=== PATIENT | female | born 1935 | race Caucasian/White ===

== ENCOUNTER → 2016-11-17 | Outpatient (CLI) | payer MEDICARE ==
[~2016-11-17] MED LIST: ALPR.5 PO; BACT400T PO; DIOV160T60 PO; LEVO75TA3 PO; LEVO75TA42 PO; LOSA50TA PO; MEDR4PAK3 PO; SIMV20 PO; TOPR25TA PO; TOPR25TA2 PO; XANA0.5T PO; ZOCO20TA PO
[2016-11-17 09:39] LABS: AUTOMATED NEUTROPHIL # 3.6 TH/MM3 (1.8-7.7); BASOPHIL # 0.1 TH/MM3 (0-0.2); BASOPHIL % 1.2 % (0.0-2.0); EOSINOPHIL # 0.1 TH/MM3 (0-0.4); EOSINOPHIL % 1.6 % (0.0-4.0); HEMATOCRIT 36.6 % (35.0-46.0); HEMO FLAGS DIFF FINAL; LYMPH % 20.7 % (9.0-44.0); LYMPHOCYTE # 1.2 TH/MM3 (1.0-4.8); MEAN CORPUSCULAR HEMOGLOBIN 32.9 PG (27.0-34.0); MEAN CORPUSCULAR HGB CONC 35.7 % (32.0-36.0); MONO % 16.4 % (0.0-8.0); NEUT % 60.1 % (16.0-70.0); PLATELET COUNT 252 TH/MM3 (150-450); RED BLOOD COUNT 3.98 MIL/MM3 (4.00-5.30); WHITE BLOOD COUNT 5.9 TH/MM3 (4.0-11.0)
[2016-11-17 10:12] LABS: ALKALINE PHOSPHATASE 78 U/L (45-117); ALT (GPT) 19 U/L (10-53); ANION GAP 6 MEQ/L (5-15); AST (GOT) 15 U/L (15-37); BICARBONATE 28.6 MEQ/L (21.0-32.0); BLOOD UREA NITROGEN 18 MG/DL (7-18); CHLORIDE 93 MEQ/L (98-107); GLOMERULAR FILTRATION RATE 59 ML/MIN (>89); GLUCOSE,FASTING 78 MG/DL (74-99); HDL CHOLESTEROL 99.1 MG/DL (40.0-60.0); LDL CHOLESTEROL 72 MG/DL (0-99); POTASSIUM 4.3 MEQ/L (3.5-5.1); SODIUM (NA) 128 MEQ/L (136-145); TOTAL BILIRUBIN ADULT 0.5 MG/DL (0.2-1.0)
== END ==
LOC: PLAB 06:43
PROVIDERS: ATTEND Family Medicine
DX: E03.8 Other specified hypothyroidism (principal); R00.2 Palpitations; E55.9 Vitamin D deficiency, unspecified; E78.2 Mixed hyperlipidemia; R41.3 Other amnesia
CPT/HCPCS: 36415; 80053; 80061; 82306; 84443; 85025

== ENCOUNTER → 2016-11-21 | Outpatient (CLI) | payer MEDICARE ==
--- NOTE | 2016-11-23 23:15 | HM ---
Date Performed: 11/21/2016 Time Performed: 13:54:00 HOOKUP DATE: 11/21/16 01:54:00 PM Mon ANALYSIS START TIME: 11/21/2016 1:59:00 PM ANALYSIS END TIME: 11/22/2016 1:57:45 PM PATIENT AGE: 81 PATIENT HEIGHT PATIENT WEIGHT DRUG LIST PATIENT DIAGNOSIS: PALPITATIONS TEST NARRATIVE: The patient's average heart rate was 74 BPM. No episodes of tachycardia wer e noted. Heart rates less than 50 BPM were noted 2% of the time. No pauses exceeding 2.0 seconds were noted. 2 ventricular ectopics, which represented < 1% of the total beat count, were noted. The highest ventricular ectopic frequency occurred from 03:00 PM to 04:00 PM Mon. During this time 1 VE(s) occurred. Ventricular ectopics were observed as 2 isolated beat(s) only. No couplets or run s were noted. 85 supraventricular ectopics, which represented < 1% of the total beat count, were noted. The highest supraventricular ectopic frequency occurred from 08:00 PM to 09:00 PM Mon. Gisselle plummer this time 12 SVE(s) occurred. Multiple episodes of ST depression (defined as -1.0 mm or more) were noted in channel 1. The maximum depression of -1.9 mm occurred at 03:40:50 PM Mon. No episodes of ST depression (defined as -1.0 mm or more) were noted in channel 2. No episodes of ST depression (defined as -1.0 mm or more) were noted in channel 3. TEST INTERPRETATION: Sinus rhythm No ventricular tachycardia No supraventricular tachycardia No significant p[ause observed There is n o entry in the diary Signed by : Franny Lewis
== END ==
LOC: HCAV 12:29
PROVIDERS: ATTEND Family Medicine
DX: R00.2 Palpitations (principal)
CPT/HCPCS: 93225; 93226

== ENCOUNTER → 2016-11-22 | Outpatient (CLI) | payer MEDICARE ==
[2016-11-22 14:07] LABS: AUTOMATED NEUTROPHIL # 4.5 TH/MM3 (1.8-7.7); BASOPHIL # 0.1 TH/MM3 (0-0.2); BASOPHIL % 0.8 % (0.0-2.0); EOSINOPHIL % 0.6 % (0.0-4.0); HEMATOCRIT 35.1 % (35.0-46.0); HEMO FLAGS DIFF FINAL; LYMPHOCYTE # 0.9 TH/MM3 (1.0-4.8); MEAN CELL VOLUME 92.6 FL (80.0-100.0); MEAN CORPUSCULAR HEMOGLOBIN 33.1 PG (27.0-34.0); MEAN CORPUSCULAR HGB CONC 35.8 % (32.0-36.0); NEUT % 66.6 % (16.0-70.0); PLATELET COUNT 266 TH/MM3 (150-450); RED BLOOD COUNT 3.79 MIL/MM3 (4.00-5.30); RED CELL DISTRIBUTION WIDTH 13.2 % (11.6-17.2); WHITE BLOOD COUNT 6.7 TH/MM3 (4.0-11.0)
[2016-11-22 14:36] LABS: POTASSIUM 4.3 MEQ/L (3.5-5.1)
== END ==
LOC: PLAB 09:05
PROVIDERS: ATTEND Family Medicine
DX: E87.1 Hypo-osmolality and hyponatremia (principal); D72.821 Monocytosis (symptomatic); E03.8 Other specified hypothyroidism
CPT/HCPCS: 36415; 80048; 84443; 85025

== ENCOUNTER 2016-11-24 19:15 | Emergency (ER) | payer MEDICARE ==
[~2016-11-24] VITALS: Ht 149.9 cm; Wt 54.4 kg
[~2016-11-24 19:15] MED LIST changes: -ALPR.5 PO; -BACT400T PO; -LEVO75TA3 PO; -LOSA50TA PO; -TOPR25TA PO; -ZOCO20TA PO
[2016-11-24 19:32] VITALS: BP 136/68; PULSE 71; RESP 20; TEMP 98; O2SAT 98
[2016-11-24] MEDS ORDERED: SODIUM CHLOR 0.9% 1000 ML INJ 1,000 ML IV SCH (19:45)
--- NOTE | 2016-11-24 19:49 | PD ---
HPI Chief Complaint: Abnormal Results Time Seen by Provider: 19:42 Travel History International Travel<30 days: No Contact w/Intl Traveler<30days: No Traveled to known affect area: No History of Present Illness HPI 81-year-old female presents to the emergency department for complaint of generalized weakness and feeling antsy. Patient states she was notified by her primary care provider today that her serum sodium is low and if she should feel poorly she should come to the hospital for IV fluids with normal saline. Patient states that she hasn't felt well for a while so her doctor has been running some tests on her. Patient initially perhaps her thyroid was having issues that she was told by her primary care provider Dr. Johns that her thyroid function is normal. Patient was also told all her other electrolytes were normal. Patient does have history of hypertension dyslipidemia and hypothyroidism. Patient denies any history of coronary vessel disease arrhythmia diabetes and has had no recent febrile illness respiratory illness GI tract symptoms or urinary symptoms. Patient's had no focal headache visual disturbance change in mentation difficulty with speech upper or lower extremity numbness tingling or weakness or ataxia of gait. No chest pain no palpitations and no shortness of breath. Patient is unable to identify exacerbating or alleviating factors. Patient rates pain as 0/10 in intensity. PFSH Past Medical History Narrative Medical Hypertension dyslipidemia hypothyroidism no tobacco use nursing notes reviewed High Cholesterol: Yes Diminished Hearing: No Hypertension: Yes Thyroid Disease: Yes Menopausal: Yes Dilation and Curettage (D&C): Yes Past Surgical History Tonsillectomy: Yes Social History Alcohol Use: No Tobacco Use: No Substance Use: No Allergies-Medications (Allergen,Severity, Reaction): Coded Allergies: No Known Allergies (Verified , 11/24/16) Reported Meds & Prescriptions Reported Meds & Active Scripts Active Reported Xanax (Alprazolam) 0.5 Mg Tab 0.5 Mg PO HS PRN Zocor (Simvastatin) 20 Mg Tab 20 Mg PO DAILY Toprol XL (Metoprolol Succinate) 25 Mg Tab 25 Mg PO DAILY Losartan (Losartan Potassium) 50 Mg Tab 50 Mg PO DAILY Levothyroxine (Levothyroxine Sodium) 75 Mcg Tab 75 Mcg PO DAILY Review of Systems Except as stated in HPI: all other systems reviewed are Neg General / Constitutional: No: Fever, Chills Eyes: No: Visual changes HENT: No: Headaches, Congestion, Neck Pain Cardiovascular: No: Chest Pain or Discomfort, Palpitations, Syncope Respiratory: No: Shortness of Breath Gastrointestinal: No: Vomiting, Diarrhea Genitourinary: No: Flank Pain Musculoskeletal: No: Weakness, Pain Skin: No Rash Neurologic: Positive: Weakness, No: Dizziness, Syncope, Focal Abnormalities, Coordination Problem Psychiatric: Positive: Anxiety Endocrine: No: Heat Intolerance Hematologic/Lymphatic: No: Lymph Node Enlargement Physical Exam Narrative GENERAL: Well-developed well-nourished female in no acute distress no respiratory distress SKIN: Warm and dry. HEAD: Atraumatic. Normocephalic. EYES: Pupils equal and round. No scleral icterus. No injection or drainage. ENT: No nasal bleeding or discharge. Mucous membranes pink and moist. NECK: Trachea midline. No JVD. CARDIOVASCULAR: Regular rate and rhythm. RESPIRATORY: No accessory muscle use. Clear to auscultation. Breath sounds equal bilaterally. GASTROINTESTINAL: Abdomen soft, non-tender, nondistended. Hepatic and splenic margins not palpable. MUSCULOSKELETAL: Extremities without clubbing, cyanosis, or edema. No obvious deformities. NEUROLOGICAL: Awake and alert. No obvious cranial nerve deficits. Motor grossly within normal limits. Five out of 5 muscle strength in the arms and legs. Normal speech. PSYCHIATRIC: Appropriate mood and affect; insight and judgment normal. Data Data Last Documented VS Vital Signs Date Time Temp Pulse Resp B/P Pulse Ox O2 Delivery O2 Flow Rate FiO2 11/24/16 20:45 69 18 180/80 98 Room Air 11/24/16 19:32 98.0 Orders Electrocardiogram (11/24/16 19:42) Basic Metabolic Panel (Bmp) (11/24/16 19:42) Ckmb (Isoenzyme) Profile (11/24/16 19:42) Complete Blood Count With Diff (11/24/16 19:42) Magnesium (Mg) (11/24/16 19:42) Troponin I (11/24/16 19:42) Ecg Monitoring (11/24/16 19:42) Iv Access Insert/Monitor (11/24/16 19:42) Oximetry (11/24/16 19:42) Urinalysis - C+S If Indicated (11/24/16 19:42) Sodium Chlor 0.9% 1000 Ml Inj (Ns 1000 M (11/24/16 19:45) CKMB (11/24/16 19:55) CKMB% (11/24/16 19:55) Chest, Pa & Lat (11/24/16 ) Labs Laboratory Tests Test 11/24/16 11/24/16 19:55 21:09 White Blood Count 9.7 TH/MM3 Red Blood Count 3.81 MIL/MM3 Hemoglobin 12.1 GM/DL Hematocrit 35.4 % Mean Corpuscular Volume 93.1 FL Mean Corpuscular Hemoglobin 31.8 PG Mean Corpuscular Hemoglobin 34.1 % Concent Red Cell Distribution Width 12.4 % Platelet Count 282 TH/MM3 Mean Platelet Volume 8.0 FL Neutrophils (%) (Auto) 70.5 % Lymphocytes (%) (Auto) 12.3 % Monocytes (%) (Auto) 15.5 % Eosinophils (%) (Auto) 0.5 % Basophils (%) (Auto) 1.2 % Neutrophils # (Auto) 6.9 TH/MM3 Lymphocytes # (Auto) 1.2 TH/MM3 Monocytes # (Auto) 1.5 TH/MM3 Eosinophils # (Auto) 0.0 TH/MM3 Basophils # (Auto) 0.1 TH/MM3 CBC Comment DIFF FINAL Differential Comment Sodium Level 126 MEQ/L Potassium Level 4.3 MEQ/L Chloride Level 91 MEQ/L Carbon Dioxide Level 24.9 MEQ/L Anion Gap 10 MEQ/L Blood Urea Nitrogen 16 MG/DL Creatinine 0.72 MG/DL Estimat Glomerular Filtration 78 ML/MIN Rate Random Glucose 100 MG/DL Calcium Level 8.6 MG/DL Magnesium Level 2.2 MG/DL Total Creatine Kinase 139 U/L Creatine Kinase MB 2.3 NG/ML Troponin I LESS THAN 0.02 NG/ML Urine Color STRAW Urine Turbidity CLEAR Urine pH 6.0 Urine Specific Mcalister 1.012 Urine Protein NEG mg/dL Urine Glucose (UA) NEG mg/dL Urine Ketones NEG mg/dL Urine Occult Blood TRACE Urine Nitrite NEG Urine Bilirubin NEG Urine Leukocyte Esterase SMALL Urine RBC 0-3 /hpf Urine WBC 3-5 /hpf Urine Squamous Epithelial 0-5 /hpf Cells Urine Bacteria NONE /hpf Microscopic Urinalysis Comment CULT NOT INDICATED MDM Medical Decision Making Medical Screen Exam Complete: Yes Emergency Medical Condition: Yes Medical Record Reviewed: Yes Interpretation(s) EKG: Normal sinus rhythm rate [address] elevation injury pattern or ectopy noted intervals are within normal range normal axis cxr: FINDINGS: The heart size is normal. There is some hazy density seen at the right medial base likely related to a prominent fat pad. The lungs are grossly clear. A significant effusion is not seen. The lungs do appear somewhat hyperinflated. Spurs are seen in the thoracic spine. CONCLUSION: No acute abnormality is seen. Fuentes Jarvis MD on November 24, 2016 at 21:05 CBC & BMP Diagram 11/24/16 19:55 UA: small leukocyte esterase, blood; no cx indicated Differential Diagnosis Generalized weakness, electrolyte disturbance, UTI, ACS, anemia, sepsis Narrative Course IV access obtained specimen collected and sent for resulting Patient administered 1 L normal saline Patient is aware of persistent hyponatremia 126 but otherwise normal labs and stable for outpatient management; patient is aware that her case has been discussed with her primary care provider who is aware of lab results and will see patient as an outpatient; patient has received IV fluids/normal saline and is stable for outpatient management. Patient and spouse questions have been answered to their satisfaction and patient stable to follow-up with her primary care as an outpatient. Physician Communication Physician Communication discussed with Dr Johns --knows patient well --requests cxr ivf and will follow up as outpatient Diagnosis Primary Impression: Hyponatremia Referrals: Debbie Johns MD call for appointment Patient Instructions: General Instructions Additional Instructions: Increase dietary salt; add Gatorade to intake Follow-up with your primary care provider call office in a.m. Return to the emergency department for any concerns or change in condition Med/Other Pt SpecificInfo: No Change to Meds Disposition: 01 DISCHARGE HOME Condition: Stable Tory Mclaughlin MD Nov 24, 2016 19:49
[2016-11-24 19:55] VITALS: O2SAT 98
[2016-11-24 20:03] LABS: AUTOMATED NEUTROPHIL # 6.9 TH/MM3 (1.8-7.7); BASOPHIL # 0.1 TH/MM3 (0-0.2); BASOPHIL % 1.2 % (0.0-2.0); EOSINOPHIL % 0.5 % (0.0-4.0); HEMATOCRIT 35.4 % (35.0-46.0); HEMO FLAGS DIFF FINAL; LYMPH % 12.3 % (9.0-44.0); LYMPHOCYTE # 1.2 TH/MM3 (1.0-4.8); MEAN CELL VOLUME 93.1 FL (80.0-100.0); MEAN CORPUSCULAR HEMOGLOBIN 31.8 PG (27.0-34.0); MEAN CORPUSCULAR HGB CONC 34.1 % (32.0-36.0); MONO % 15.5 % (0.0-8.0); NEUT % 70.5 % (16.0-70.0); PLATELET COUNT 282 TH/MM3 (150-450); RED BLOOD COUNT 3.81 MIL/MM3 (4.00-5.30); RED CELL DISTRIBUTION WIDTH 12.4 % (11.6-17.2); WHITE BLOOD COUNT 9.7 TH/MM3 (4.0-11.0)
[2016-11-24 20:09] LABS: CHLORIDE 91 MEQ/L (98-107); POTASSIUM 4.3 MEQ/L (3.5-5.1); SODIUM (NA) 126 MEQ/L (136-145)
[2016-11-24 20:12] LABS: ANION GAP 10 MEQ/L (5-15); BICARBONATE 24.9 MEQ/L (21.0-32.0); BLOOD UREA NITROGEN 16 MG/DL (7-18); MAGNESIUM 2.2 MG/DL (1.5-2.5)
[2016-11-24 20:16] LABS: GLOMERULAR FILTRATION RATE 78 ML/MIN (>89)
[2016-11-24 20:19] LABS: CREATINE KINASE 139 U/L (26-192)
[2016-11-24] MEDS ORDERED: LEVO75TA3 PO (20:24)
[2016-11-24] MEDS ORDERED: TOPR25TA PO (20:25)
[2016-11-24] MEDS ORDERED: LOSA50TA PO (20:25)
[2016-11-24] MEDS ORDERED: ZOCO20TA PO (20:26)
[2016-11-24] MEDS ORDERED: ALPR.5 PO (20:27)
[2016-11-24 20:31] LABS: CKMB 2.3 NG/ML (0.5-3.6)
[2016-11-24 20:45] VITALS: BP 180/80; PULSE 69; RESP 18; O2SAT 98
--- NOTE | 2016-11-24 21:11 | RADHPO ---
EXAM DATE/TIME: 11/24/2016 20:47 [facility] COMPARISON: No previous studies available for comparison. INDICATIONS : Heart palpitations, low sodium. MEDICAL HISTORY : Hypercholesterolemia. Hypertension SURGICAL HISTORY : None. ENCOUNTER: Initial ACUITY: 1 day PAIN SCORE: 0/10 LOCATION: Bilateral chest FINDINGS: The heart size is normal. There is some hazy density seen at the right medial base like ly related to a prominent fat pad. The lungs are grossly clear. A significant effusion is not seen. The lungs do appear somewhat hyperinflated. Spurs are seen in the thoracic spine. CONCLUSION: No acute abnormality is seen. Fuentes Jarvis MD on November 24, 2016 at 21:05 Board Certified Radiologist. This report was verified electronically.
[2016-11-24 21:22] LABS: BLOOD, URINE TRACE (NEG); GLUCOSE,URINE NEG (NEG); KETONE, URINE NEG (NEG); NITRITE,URINE NEG (NEG)
[2016-11-24 21:34] LABS: URINE COLOR STRAW (YELLW/STRAW)
[2016-11-24 21:35] LABS: COMMENT (UR) CULT NOT INDICATED; CULTURE IF INDICATED CULT NOT INDICATED; RBC, URINE 0-3 /hpf (0-3); SQUAMOUS EPITHELIAL CELL URINE 0-5 /hpf (0-5)
[2016-11-24 22:00] VITALS: BP 158/58; PULSE 71; RESP 18; O2SAT 96
--- NOTE | 2016-11-25 12:57 | EKG ---
Date Performed: 11/24/2016 Time Performed: 20:00:12 PTAGE: 81 years EKG: Sinus rhythm Normal ECG PREVIOUS TRACING : 05/19/2004 00.18 Since previous tracing, no significant change noted DOCTOR: Marshall Gotti Interpretating Date/Time 11/25/2016 12:55:09
== END 2016-11-24 22:16 | disposition home or self-care (01) ==
LOC: PHED 19:15
DX: E87.1 Hypo-osmolality and hyponatremia (principal); I10 Essential (primary) hypertension; E78.00 Pure hypercholesterolemia, unspecified
CPT/HCPCS: 71020; 80048; 81001; 82550; 82552; 83735; 84484; 85025; 93005; 96360; 96361; 99285; J7030

== ENCOUNTER → 2016-11-30 | Outpatient (CLI) | payer MEDICARE ==
[~2016-11-30] MED LIST changes: +ALPR.5 PO; +BACT400T PO; -DIOV160T60 PO; +LEVO75TA3 PO; -LEVO75TA42 PO; +LOSA50TA PO; -MEDR4PAK3 PO; -SIMV20 PO; +TOPR25TA PO; -TOPR25TA2 PO; -XANA0.5T PO; +ZOCO20TA PO
[2016-11-30 13:14] LABS: AUTOMATED NEUTROPHIL # 5.4 TH/MM3 (1.8-7.7); BASOPHIL # 0.1 TH/MM3 (0-0.2); BASOPHIL % 0.7 % (0.0-2.0); EOSINOPHIL % 0.2 % (0.0-4.0); HEMATOCRIT 35.8 % (35.0-46.0); HEMO FLAGS DIFF FINAL; LYMPH % 9.5 % (9.0-44.0); LYMPHOCYTE # 0.7 TH/MM3 (1.0-4.8); MEAN CELL VOLUME 91.5 FL (80.0-100.0); MEAN CORPUSCULAR HEMOGLOBIN 31.9 PG (27.0-34.0); MEAN CORPUSCULAR HGB CONC 34.9 % (32.0-36.0); MONO % 14.3 % (0.0-8.0); NEUT % 75.3 % (16.0-70.0); PLATELET COUNT 286 TH/MM3 (150-450); RED BLOOD COUNT 3.92 MIL/MM3 (4.00-5.30); RED CELL DISTRIBUTION WIDTH 13.1 % (11.6-17.2); WHITE BLOOD COUNT 7.2 TH/MM3 (4.0-11.0)
[2016-11-30 13:20] LABS: BICARBONATE 22.8 MEQ/L (21.0-32.0); POTASSIUM 4.3 MEQ/L (3.5-5.1)
== END ==
LOC: PLAB 08:54
PROVIDERS: ATTEND Family Medicine
DX: E87.1 Hypo-osmolality and hyponatremia (principal); D72.821 Monocytosis (symptomatic)
CPT/HCPCS: 36415; 80048; 85025

== ENCOUNTER 2016-12-01 10:19 | Inpatient (IN) | payer MEDICARE ==
[~2016-12-01] VITALS: Ht 157.5 cm; Wt 54.1 kg
[~2016-12-01 10:19] MED LIST changes: -BACT400T PO
[2016-12-01 12:00] VITALS: BP 137/75; PULSE 66; RESP 18; TEMP 96.7; O2SAT 96
[2016-12-01] MEDS: SODIUM CHLOR 0.9% 1000 ML INJ 1,000 ML IV SCH ×2 (14:00→21:31)
[2016-12-01] MEDS ORDERED: LORazepam 2 MG/ML VIAL IV PRN (14:00)
[2016-12-01] MEDS ORDERED: LORazepam 0.5 MG TAB PO PRN (14:00)
--- NOTE | 2016-12-01 14:32 | RADHPO ---
EXAM DATE/TIME: 12/01/2016 12:29 [facility] COMPARISON: No previous studies available for comparison. INDICATIONS : Confusion. Hyponatremia. RADIATION DOSE: 41.12 CTDIvol (mGy) MEDICAL HISTORY : Hypertension. Hypothyroidism. SURGICAL HISTORY : None. ENCOUNTER: Initial ACUITY: 1 day PAIN SCALE: 0/10 LOCATION: cranial TECHNIQUE: Multiple contiguous axial images were obtained of the head. Using automated exposure control and adj ustment of the mA and/or kV according to patient size, radiation dose was kept as low as reasonably a chievable to obtain optimal diagnostic quality images. FINDINGS: CEREBRUM: The ventricles are normal for age. No evidence of midline shift, mass lesion, hemorrhage or acute in farction. No extra-axial fluid collections are seen. POSTERIOR FOSSA: The cerebellum and brainstem are intact. The 4th ventricle is midline. The cerebellopontine angle i s unremarkable. EXTRACRANIAL: The visualized portion of the orbits is intact. Opacified right ethmoids and visualized portion of t he right maxillary sinus. SKULL: The calvaria is intact. No evidence of skull fracture. CONCLUSION: 1. No acute findings in the brain. 2. Right ethmoid and maxillary sinus disease. Philip Sr MD on December 01, 2016 at 14:29 Board Certified Radiologist. This report was verified electronically.
--- NOTE | 2016-12-01 14:35 | RADHPO ---
EXAM DATE/TIME: 12/01/2016 12:32 [facility] COMPARISON: No previous studies available for comparison. INDICATIONS : Hyponatremia. RADIATION DOSE: 13.94 CTDIvol (mGy) MEDICAL HISTORY : Hypertension. Hypothyroidism. SURGICAL HISTORY : None. ENCOUNTER: Initial ACUITY: 1 day PAIN SCALE: 0/10 LOCATION: chest TECHNIQUE: Volumetric scanning of the chest was performed. Using automated exposure control and adjustment of t he mA and/or kV according to patient size, radiation dose was kept as low as reasonably achievable to obtain optimal diagnostic quality images. FINDINGS: LUNGS: There are small areas of infiltrate with air bronchograms located in the medial right anterior lung a nd in the lower lateral left lung. The areas of involvement measuring less than 6 mm in thickness. PLEURAE: There is no pleural thickening or pleural effusion. MEDIASTINUM: The heart and great vessels demonstrate no acute abnormality. There is no mediastinal or hilar lymph adenopathy. AXILLAE: Within normal limits. No lymphadenopathy. MUSCULOSKELETAL: Within normal limits for patient age. MISCELLANEOUS: The visualized upper abdominal organs demonstrate no acute abnormality. CONCLUSION: Bilateral lower lung subsegmental areas of consolidation without evidence of pleural effusion or medi astinal adenopathy. Philip Sr MD on December 01, 2016 at 14:30 Board Certified Radiologist. This report was verified electronically.
[2016-12-01 16:00] VITALS: BP 125/64; PULSE 79; RESP 18; TEMP 98.2; O2SAT 97
[2016-12-01 16:38] LABS: BICARBONATE 22.8 MEQ/L (21.0-32.0); POTASSIUM 3.8 MEQ/L (3.5-5.1)
--- NOTE | 2016-12-01 18:50 | MH ---
cc: ARABELLA MAHAJAN MD DATE OF ADMISSION 12/01/2016 DATE OF 1935. CHIEF COMPLAINT Increased confusion and anxiety, not feeling well. ADMISSION DIAGNOSIS Hyponatremia and confusion. HISTORY OF PRESENT ILLNESS Ms. Hamilton is an 81-year-old white female who presented to me a few weeks ago with increasing confusion and anxiety. We had performed some lab work on her at that time and found her sodium to be low at 124. We had decrease decreasing her free water intake and increasing her salt intake in her diet, which she was trying to do. However, her salt levels have not improved and she continues to decline. Her significant other who is with her today states that she is having significant increase in confusion. She is not completing tasks, not doing things like she normally would. The patient notes that she has had some changes with her vision and seeing checkerboard or crossword puzzle like things on the akbar and was noticing even "stripes on my shirt which I did not have today". She is looking very distracted in the office and definitely not her normal self. She had gone to the emergency room last week not feeling well, had a low sodium and was given normal saline and sent home. However, she continues to do poorly over the weekend. PAST MEDICAL HISTORY 1. Helicobacter Pylori infection in 2005 2. Onychomycosis 3. Hypothyroidism 4. Vitamin D deficiency 5. Hyperlipidemia, 5. Anxiety but nothing to the extent she is having now. 6. Hypertension 7. History of hemorrhoids 8. History of diverticulosis, 9. Osteoporosis, 10. Insomnia 11. Hyponatremia of recent onset 12. Heart palpitations that have begun in the past month. PAST SURGICAL HISTORY 1. Tonsillectomy 2. D&C. SOCIAL HISTORY She is but she has a significant other with whom she lives. She has one alcoholic drink per day or less. She is a retired nurse. She is a former cigarette smoker with an 80 pack-year history and quit in 1978. MEDICATIONS 1. Xanax 0.5 mg 1/2 tablet at bedtime to sleep 2. losartan 50 mg daily, 3. Levoxyl 75 mcg daily, 4. metoprolol succinate 25 mg daily, 5. simvastatin 20 mg p.o. q.h.s. 6. vitamin D 1000 units daily. ALLERGIES She has no known drug allergies. FAMILY HISTORY Brother at 66 with prostate cancer. She has two daughters with asthma. Her dad at 73 with lung cancer. Mom at 76 in a motor vehicle accident. She previously had a gastric ulcer and a peritonitis from her injury. She has one son who is healthy. She has refused vaccinations. REVIEW OF SYSTEMS Vision changes as noted above. She noticed this morning that her pupils were really dilated, however, there not on exam today. She has not noted dizziness, but has been somewhat unbalanced, no sore throats, no fever, sweats or chills. No lymph nodes notable. She has had some intermittent chest discomfort that she describes as palpitations feeling like her heart is pounding and going too fast but has not ever actually checked her pulse. She has had some shortness of breath associated with those things. She feels as though this is anxiety. She has noted tremors to both hands and to her body periodically. No abdominal pain, no hematochezia, melena, dysuria, hematuria. No lower extremity edema. No other changes to her skin. She notes difficulty sitting still. She feels anxious all the time. She feels hyper. She has noted increased confusion and just really not feeling like her normal self. She denies any increase in urination and not having any diarrhea. She notes she will have 6 glasses of water per day but has tried to trade those out for Gatorade in the past few weeks and has been adding salt to her food without success. She feels like her thyroid is not right. I had encouraged her to increase her Levoxyl from 6 days a week to 7 days a week 2 weeks ago which she has done. She keeps blaming herself for not wanting to make medication changes at her last visit for the cause of her problems. Remainder of ROS is negative. PHYSICAL EXAMINATION VITAL SIGNS: Her height is 60 inches, weight 117.4 pounds. She is down weight in the past year. Blood pressure 154/68, pulse was 84, body mass index at 23, temperature 96.9, O2 sats 97% on room aur. GENERAL: She is a thin white female definitely not looking her normal self. She is somewhat rocking. She has bilateral hand tremors. She has difficulty focusing on the task at hand. She is unsteady getting to the table. She sits with her arms wrapped around her most of the time. HEENT: Pupils are equal and minimally reactive about 3 mm in diameter. Extraocular movements appear intact, but she has difficulty following commands. She does not follow commands to test accommodation. Tympanic membranes within normal limits bilaterally. Nose no discharge. Oropharynx is benign without erythema. NECK: She has no lymphadenopathy to the neck. No supraclavicular adenopathy. No carotid bruits. CARDIOVASCULAR: Regular rate and rhythm with a 1/6 systolic ejection murmur. LUNGS: Clear to auscultation bilaterally. No wheezes, no rhonchi. ABDOMEN: Soft, nontender. Normal bowel sounds. No inguinal adenopathy. EXTREMITIES: Lower extremities show no edema. No skin lesions. She has 2+ pulses. She states her feet and legs feel cold, however, they are warm to touch. She feels that they are subjectively numb. She has equal strength bilaterally on testing, but has bilateral hand tremors and will periodically shutter throughout her body even to her upper hands significantly. Two weeks ago, I did a mini mental status test on her which was really pretty good at a 27 out of 30. She missed one item at 3 minutes recall and missed two points on spelling WORLD backwards. Other than that, she did well on her testing. ASSESSMENT/PLAN 1. Hyponatremia with confusion and neurological changes. We will admit to the hospital for sodium replacement. We will check a CT scan of the head and the chest. A chest x-ray film was negative last week, but need to evaluate further given the hyponatremia and the tobacco history. We will check serum osmolality and urine osmolality, urine sodium and treat her anxiety. Continue to evaluate for other reasons for her hyponatremia. Monitor her electrolytes carefully. 2. Hypertension. She has been under good control. 3. Hyperlipidemia. This was also checked a few weeks ago and was under excellent control so I do not believe that the hyponatremia is secondary to very elevated lipids. Her blood sugars have been within normal limits. 4. Hypothyroidism. Her TSH was only slightly low with a TSH of five. I have increased her to a daily dosing on her thyroid. We will see how she does. MD ALEJANDRO Kruse/ /5:05 PM /6:16 PM MTDHuong
[2016-12-01 20:00] VITALS: BP 146/63; PULSE 74; RESP 20; TEMP 98.3; O2SAT 97
[2016-12-01] MEDS ORDERED: ALPRAZolam 0.5 MG TAB PO SCH (21:00)
[2016-12-01] MEDS ORDERED: PRAVASTATIN SOD 40 MG TAB PO SCH (21:00)
[2016-12-01 21:23] LABS: BLOOD, URINE TRACE (NEG); GLUCOSE,URINE NEG (NEG); KETONE, URINE TRACE mg/dL (NEG); NITRITE,URINE NEG (NEG)
[2016-12-01 21:28] LABS: METHOD OF COLLECTION CLEAN CATCH; URINE COLOR YELLOW (YELLW/STRAW)
[2016-12-01 21:29] LABS: MUCUS URINE OCC /lpf (OCC); SQUAMOUS EPITHELIAL CELL URINE 0-5 /hpf (0-5)
[2016-12-01 21:31] LABS: BACTERIA, URINE RARE /hpf; COMMENT (UR) CULT NOT INDICATED; CULTURE IF INDICATED CULT NOT INDICATED
[2016-12-02] VITALS: BP 119/57; PULSE 65; RESP 20; TEMP 98.2; O2SAT 100
[2016-12-02] MEDS: SODIUM CHLOR 0.9% 1000 ML INJ 1,000 ML IV SCH ×2 (05:22→14:00)
[2016-12-02] MEDS ORDERED: LEVOTHYROXINE SODIUM 75 MCG TAB PO SCH (06:00)
[2016-12-02 07:07] LABS: POTASSIUM 3.9 MEQ/L (3.5-5.1)
[2016-12-02 08:07] VITALS: BP 147/66; PULSE 79; RESP 18; TEMP 97.2; O2SAT 96
[2016-12-02] MEDS ORDERED: METOPROLOL SUCCINATE 25 MG EXTENDED RELEASE TAB PO SCH (09:00)
[2016-12-02] MEDS ORDERED: CHOLECALCIFEROL (VIT D3) 1000 UNIT TAB PO SCH (09:00)
[2016-12-02] MEDS ORDERED: LOSARTAN 50 MG TAB PO SCH (09:00)
--- NOTE | 2016-12-02 09:46 | HHI.FPPN ---
Subjective Remarks She is feeling much better this AM, less anxious, finally slept last PM, feels stable going to the bathroom. Nurse notes she seems like a different person this AM, now talkative, less withdrawn, etc. Less tremulous. Appetite is better .We discussed diet and fluid intake and it does sound like she has a lot of water intake which may be contributing to the low sodium. She has had chronic sinus issues, saw ENT who felt she was fine but still notes occasional nose bleeds. WE discussed the CT head and CT thorax report. She hasn't had cough, SOB or s/s of pneumonia, just sinus issues. No fever. she notes that her daughter bought her gatorade after her last visit to me a few weeks ago but she hadn't used it yet. Realizes she needs to now . Objective Vitals Vital Signs Date Time Temp Pulse Resp B/P Pulse Ox O2 Delivery O2 Flow Rate FiO2 12/02/16 08:07 97.2 79 18 147/66 96 12/02/16 00:00 98.2 65 20 119/57 100 12/01/16 20:00 98.3 74 20 146/63 97 12/01/16 16:00 98.2 79 18 125/64 97 12/01/16 12:00 96.7 66 18 137/75 96 I/O 12/01/16 12/01/16 12/01/16 12/02/16 12/02/16 12/02/16 07:00 15:00 23:00 07:00 15:00 23:00 Intake Total 1206 ml 1014 ml Output Total 800 ml 500 ml Balance 406 ml 514 ml Intake Oral 300 ml 60 ml IV Total 906 ml 954 ml Output Urine Total 800 ml 500 ml # Voids 5 # Bowel Movements 0 0 Result Diagram: 12/02/16 0622 Objective Remarks Gen: looks much better today. No longer rocking in her bed, not tremulous, talking like her normal self, not distracted Vision: states she still sees the crossword puzzle design on the wall, saw writing on the TV screen even though the TV wasn't on. Sees Dr. Pabon CV: RRR, no murmur Lungs: CTA bilaterally Abd: soft, NT Ext: very minimal hand tremor, not full body shakes like yesterday mental status: she is much more alert, less anxious, more normally talkative. Urinary Catheter: No Vascular Central Line Catheter: No A/P Problem List: (1) Hyponatremia Status: Acute Plan: Normovolemic, low serum osmololality, normal urine osm. pending ADH, urine sodium, cortisol and aldosterone levels. She is much better after NS. Suspect SIADH vs primary polydypsia. Doubt due to primary aldosteronism as her potassium level is normal. No heart failure, cirrhosis, severe diabetes or lipids, and her thyroid is well controlled with medications. Will recheck labs at noon today, speak with her circular head saw operator or daughter to see how they feel she is doing mentally and possibly discharge home on a high salt diet with outpatient eval next week. no sign of pulmonary issues of concern. (2) Hypertension, benign Status: Acute Plan: has been well controlled. Will need to monitor with high salt diet. She isn't on diuretics. (3) Hyperlipidemia Status: Acute Plan: She has been well controlled on recent labs as outpatient. (4) Chronic sinusitis Status: Chronic Plan: Ongoing for some time. Will give 2 weeks of septra as long as she can tolerate it. Problem Qualifiers (1) Hyperlipidemia: Qualified Code: E78.2 - Mixed hyperlipidemia (2) Chronic sinusitis: Qualified Code: J32.0 - Chronic maxillary sinusitis Debbie Johns MD Dec 02, 2016 09:46
[2016-12-02] MEDS ORDERED: SULFAMETHOXAZOLE-TRIMETHOPRIM 400-80 MG TAB PO SCH (11:00)
[2016-12-02 11:55] LABS: POTASSIUM 3.8 MEQ/L (3.5-5.1)
[2016-12-02 12:21] VITALS: BP 136/66; PULSE 78; RESP 18; TEMP 96.5; O2SAT 98
[2016-12-02 13:28] LABS: CORTISOL 20.5 MCG/DL
[2016-12-02] MEDS ORDERED: BACT400T PO (15:31)
--- NOTE | 2016-12-02 15:42 | HHI.DS ---
Discharge Summary Admission Date Dec 01, 2016 at 10:19 Discharge Date: Dec 02, 2016 Admitting Diagnosis (1) Hyponatremia Diagnosis: Principal Plan: Normovolemic, low serum osmololality, normal urine osm. pending ADH, urine sodium, cortisol and aldosterone levels. She is much better after NS. Suspect SIADH vs primary polydypsia. Doubt due to primary aldosteronism as her potassium level is normal. No heart failure, cirrhosis, severe diabetes or lipids, and her thyroid is well controlled with medications. Will recheck labs at noon today, speak with her contact lens cutter or daughter to see how they feel she is doing mentally and possibly discharge home on a high salt diet with outpatient eval next week. no sign of pulmonary issues of concern. Spoke with her daughter , Ann-Marie, this afternoon who notes she is significantly better than yesterday. We discussed free water restriction and salt use. recheck BMP in 1 week. (2) Hypertension, benign Diagnosis: Secondary Plan: has been well controlled. Will need to monitor with high salt diet. She isn't on diuretics. (3) Hyperlipidemia Diagnosis: Secondary Plan: She has been well controlled on recent labs as outpatient. (4) Chronic sinusitis Diagnosis: Secondary Plan: Ongoing for some time. Will give 2 weeks of septra as long as she can tolerate it. Brief History 81 yo WF with increasing confusion, tremulousness and instability, found to be hyponatremic. She improved significantly with NS infusion overnight. CBC/BMP: 12/02/16 1135 Significant Findings Laboratory Tests Test 12/01/16 12/01/16 12/02/16 12/02/16 16:04 21:13 06:22 11:35 Sodium Level 124 MEQ/L 131 MEQ/L 131 MEQ/L (136-145) (136-145) (136-145) Chloride Level 90 MEQ/L 97 MEQ/L (98-107) (98-107) Estimat Glomerular Filtration 68 ML/MIN (>89) 69 ML/MIN (>89) Rate Random Glucose 210 MG/DL 127 MG/DL (74-106) (74-106) Serum Osmolality 262 MOSM/KG 267 MOSM/KG (275-295) (275-295) Calcium Level 8.0 MG/DL 8.2 MG/DL 7.8 MG/DL (8.5-10.1) (8.5-10.1) (8.5-10.1) Urine Ketones TRACE mg/dL (NEG) Urine Occult Blood TRACE (NEG) Urine Leukocyte Esterase TRACE (NEG) Urine RBC 4-9 /hpf (0-3) Urine Bacteria RARE /hpf (NONE) Imaging CT of the head with sinus disease but brain wnl. CT thorax with no sign of cancer but atelectasis/consolidation (placind on septra for sinuses that should help with hte lung also) PE at Discharge Gen: looks much better today. No longer rocking in her bed, not tremulous, talking like her normal self, not distracted Vision: states she still sees the crossword puzzle design on the wall, saw writing on the TV screen even though the TV wasn't on. Sees Dr. Pabon CV: RRR, no murmur Lungs: CTA bilaterally Abd: soft, NT Ext: very minimal hand tremor, not full body shakes like yesterday mental status: she is much more alert, less anxious, more normally talkative. Hospital Course She was admitted and work up started for hyponatremia. Salt replaced via NS infusion with significant improvement. Pending aldosterone and ADH level at discharge. Discussed diet and fluid issues with pt and her daughter. Pt Condition on Discharge: Good Discharge Disposition: Discharge Home Discharge Instructions DIET: Follow Instructions for: As Tolerated, No Restrictions Additional Diet Instructions: Minimize free water (2 glasses per day), Encourage gatorade or other electrolyte solutoins for fluids Activities you can perform: Regular-No Restrictions Debbie Johns MD Dec 02, 2016 15:42
== END 2016-12-02 17:59 | disposition home or self-care (01) | DRG 641 ==
LOC: PH3B 10:19
PROVIDERS: ADMIT Family Medicine; ATTEND Family Medicine
DX: E87.1 Hypo-osmolality and hyponatremia (principal); I10 Essential (primary) hypertension; E03.9 Hypothyroidism, unspecified; J32.9 Chronic sinusitis, unspecified; D72.821 Monocytosis (symptomatic)
CPT/HCPCS: 36415; 70450; 71250; 80048; 81001; 82088; 82533; 83930; 83935; 84300; 84443; 84588; 85025; J7030

== ENCOUNTER → 2016-12-05 | Outpatient (CLI) | payer MEDICARE ==
[~2016-12-05] MED LIST changes: +BACT400T PO
[2016-12-05 13:11] LABS: AUTOMATED NEUTROPHIL # 7.2 TH/MM3 (1.8-7.7); BASOPHIL % 0.5 % (0.0-2.0); EOSINOPHIL % 0.2 % (0.0-4.0); HEMATOCRIT 35.9 % (35.0-46.0); HEMO FLAGS DIFF FINAL; LYMPH % 7.3 % (9.0-44.0); LYMPHOCYTE # 0.7 TH/MM3 (1.0-4.8); MEAN CELL VOLUME 92.4 FL (80.0-100.0); MEAN CORPUSCULAR HEMOGLOBIN 31.5 PG (27.0-34.0); MEAN CORPUSCULAR HGB CONC 34.1 % (32.0-36.0); MONO % 14.5 % (0.0-8.0); NEUT % 77.5 % (16.0-70.0); PLATELET COUNT 295 TH/MM3 (150-450); RED BLOOD COUNT 3.88 MIL/MM3 (4.00-5.30); RED CELL DISTRIBUTION WIDTH 13.3 % (11.6-17.2); WHITE BLOOD COUNT 9.3 TH/MM3 (4.0-11.0)
[2016-12-05 13:42] LABS: BICARBONATE 25.3 MEQ/L (21.0-32.0); POTASSIUM 4.3 MEQ/L (3.5-5.1)
== END ==
LOC: PLAB 09:09
PROVIDERS: ATTEND Family Medicine
DX: E87.1 Hypo-osmolality and hyponatremia (principal); D72.821 Monocytosis (symptomatic)
CPT/HCPCS: 36415; 80048; 85025

== ENCOUNTER → 2016-12-12 | Outpatient (CLI) | payer MEDICARE ==
[2016-12-12 10:04] LABS: BICARBONATE 27.9 MEQ/L (21.0-32.0); POTASSIUM 4.1 MEQ/L (3.5-5.1)
== END ==
LOC: PLAB 08:29
PROVIDERS: ATTEND Family Medicine
DX: I10 Essential (primary) hypertension (principal)
CPT/HCPCS: 36415; 80048

== ENCOUNTER → 2016-12-19 | Outpatient (CLI) | payer MEDICARE ==
[2016-12-19 12:59] LABS: BICARBONATE 26.3 MEQ/L (21.0-32.0); FREE T4 1.33 NG/DL (0.76-1.46); POTASSIUM 4.5 MEQ/L (3.5-5.1)
== END ==
LOC: PLAB 09:39
PROVIDERS: ATTEND Family Medicine
DX: I10 Essential (primary) hypertension (principal); E03.9 Hypothyroidism, unspecified
CPT/HCPCS: 36415; 80048; 84439

== ENCOUNTER → 2016-12-26 | Outpatient (CLI) | payer MEDICARE ==
[2016-12-26 13:15] LABS: BICARBONATE 28.8 MEQ/L (21.0-32.0); POTASSIUM 4.4 MEQ/L (3.5-5.1)
== END ==
LOC: PLAB 09:32
PROVIDERS: ATTEND Family Medicine
DX: I10 Essential (primary) hypertension (principal)
CPT/HCPCS: 36415; 80048

== ENCOUNTER → 2017-01-25 | Outpatient (CLI) | payer MEDICARE ==
[2017-01-25 13:10] LABS: BICARBONATE 27.8 MEQ/L (21.0-32.0); POTASSIUM 4.3 MEQ/L (3.5-5.1)
== END ==
LOC: PLAB 08:35
PROVIDERS: ATTEND Family Medicine
DX: E87.1 Hypo-osmolality and hyponatremia (principal)
CPT/HCPCS: 36415; 80048

== ENCOUNTER → 2017-05-10 | Outpatient (CLI) | payer MEDICARE ==
[2017-05-10 10:49] LABS: ANION GAP 8 MEQ/L (5-15); AST (GOT) 13 U/L (15-37); BLOOD UREA NITROGEN 14 MG/DL (7-18); CHLORIDE 103 MEQ/L (98-107); GLOMERULAR FILTRATION RATE 71 ML/MIN (>89); GLUCOSE,FASTING 87 MG/DL (74-99); POTASSIUM 3.9 MEQ/L (3.5-5.1); SODIUM (NA) 138 MEQ/L (136-145)
[2017-05-10 11:00] LABS: ALKALINE PHOSPHATASE 96 U/L (45-117); ALT (GPT) 18 U/L (10-53); HDL CHOLESTEROL 73.5 MG/DL (40.0-60.0); LDL CHOLESTEROL 99 MG/DL (0-99); TOTAL BILIRUBIN ADULT 0.4 MG/DL (0.2-1.0)
== END ==
LOC: PLAB 06:49
PROVIDERS: ATTEND Family Medicine
DX: E87.1 Hypo-osmolality and hyponatremia (principal); E22.2 Syndrome of inappropriate secretion of antidiuretic hormone; E78.2 Mixed hyperlipidemia; E03.8 Other specified hypothyroidism
CPT/HCPCS: 36415; 80053; 80061; 84443

== ENCOUNTER → 2017-06-14 | Outpatient (CLI) | payer MEDICARE ==
[2017-06-14 14:00] LABS: BICARBONATE 26.8 MEQ/L (21.0-32.0); POTASSIUM 3.9 MEQ/L (3.5-5.1)
== END ==
LOC: PLAB 08:44
PROVIDERS: ATTEND Family Medicine
DX: E87.1 Hypo-osmolality and hyponatremia (principal); E22.2 Syndrome of inappropriate secretion of antidiuretic hormone; E55.9 Vitamin D deficiency, unspecified
CPT/HCPCS: 36415; 80048; 82306

== ENCOUNTER 2017-11-27 09:50 | Emergency (ER) | payer MEDICARE ==
[~2017-11-27] VITALS: Ht 149.9 cm; Wt 59.0 kg
[2017-11-27 09:59] VITALS: BP 205/88; PULSE 67; RESP 16; TEMP 98.1; O2SAT 97
[2017-11-27] MEDS ORDERED: SODI1TAB PO (11:39)
[2017-11-27] MEDS ORDERED: MELA5 PO (11:39)
[2017-11-27] MEDS ORDERED: SODIUM CHLORIDE 0.9% FLUSH 10 ML FLUSH IV FLUSH PRN (12:00)
[2017-11-27 12:23] VITALS: O2SAT 96
[2017-11-27 12:25] VITALS: BP 179/69; PULSE 68; RESP 20; O2SAT 96
--- NOTE | 2017-11-27 12:26 | PD ---
HPI Chief Complaint: Numbness/Tingling Time Seen by Provider: 11:35 Travel History International Travel<30 days: No Contact w/Intl Traveler<30days: No Traveled to known affect area: No History of Present Illness HPI 82-year-old female here for evaluation of left facial droop and left facial numbness. The patient first noticed the symptoms 2 days ago. She has been having a difficult time chewing, opening and closing her left eye, and is noted some drooling out of the left side of her mouth. She denies upper or lower extremity weakness, deficits, or paresthesias. No headache. No visual changes. She reports that her symptoms seem to be slightly improved from when they initially started 2 days ago. She occasionally has pain in her left ear. She denies fevers or recent illness. PFSH Past Medical History Anxiety: Yes Depression: Yes Cancer: No Cardiovascular Problems: Yes High Cholesterol: Yes Diminished Hearing: No Endocrine: Yes Genitourinary: No Hypertension: Yes Immune Disorder: No Musculoskeletal: No Neurologic: No Psychiatric: Yes Reproductive: No Respiratory: No Thyroid Disease: Yes (hypothyroidism) Tetanus Vaccination: > 5 Years Influenza Vaccination: No ?: Not Menopausal: Yes Dilation and Curettage (D&C): Yes Past Surgical History Tonsillectomy: Yes Social History Alcohol Use: No Tobacco Use: No Substance Use: No Allergies-Medications (Allergen,Severity, Reaction): Coded Allergies: Sulfa (Sulfonamide Antibiotics) (Verified Allergy, Intermediate, RASH, ) Reported Meds & Prescriptions Reported Meds & Active Scripts Active Reported Melatonin 5 Mg Tab 3-6 Mg PO HS Sodium Chloride 1 Gram Tab 1 Gm PO DAILY Xanax (Alprazolam) 0.5 Mg Tab 0.75 Mg PO HS PRN Zocor (Simvastatin) 20 Mg Tab 20 Mg PO DAILY Toprol XL (Metoprolol Succinate) 25 Mg Tab 25 Mg PO DAILY Losartan (Losartan Potassium) 50 Mg Tab 50 Mg PO DAILY Levothyroxine (Levothyroxine Sodium) 75 Mcg Tab 75 Mcg PO DAILY Review of Systems Except as stated in HPI: all other systems reviewed are Neg Physical Exam Narrative GENERAL: Well-developed, well-nourished, comfortable, no apparent distress, GCS 15, pleasant SKIN: Focused skin assessment warm/dry. HEAD: Atraumatic. Normocephalic. EYES: Pupils equal, round, 3 mm, reactive to light. EOMI. No scleral icterus. No injection or drainage. ENT: Mucous membranes pink and moist. NECK: Trachea midline. No JVD. CARDIOVASCULAR: Regular rate and rhythm. No murmur appreciated. RESPIRATORY: No accessory muscle use. Clear to auscultation. Breath sounds equal bilaterally. GASTROINTESTINAL: Abdomen soft, non-tender, nondistended. Hepatic and splenic margins not palpable. MUSCULOSKELETAL: No obvious deformities. No clubbing. No cyanosis. No edema. NEUROLOGICAL: Awake and alert. Left facial droop with inability to move her left forehead. Inability to completely close her left eye. The rest of her cranial nerves appear to be intact. No upper or lower extremity deficits, weakness, or change in sensation. Normal [id number] test bilaterally. No pronator drift. PSYCHIATRIC: Appropriate mood and affect; insight and judgment normal. Data Data Last Documented VS Vital Signs Date Time Temp Pulse Resp B/P (MAP) Pulse Ox O2 Delivery O2 Flow Rate FiO2 11/27/17 13:55 68 16 183/84 (117) 96 Room Air 11/27/17 09:59 98.1 Orders Orders Complete Blood Count With Diff (11/27/17 11:54) Comprehensive Metabolic Panel (11/27/17 11:54) Prothrombin Time / Inr (Pt) (11/27/17 11:54) Act Partial Throm Time (Ptt) (11/27/17 11:54) Iv Access Insert/Monitor (11/27/17 11:54) Ecg Monitoring (11/27/17 11:54) Oximetry (11/27/17 11:54) Sodium Chloride 0.9% Flush (Ns Flush) (11/27/17 12:00) Mri Brain W/O Contrast (11/27/17 ) Labs Laboratory Tests Test 11/27/17 12:20 White Blood Count 8.3 TH/MM3 Red Blood Count 4.10 MIL/MM3 Hemoglobin 12.8 GM/DL Hematocrit 37.4 % Mean Corpuscular Volume 91.1 FL Mean Corpuscular Hemoglobin 31.1 PG Mean Corpuscular Hemoglobin Concent 34.1 % Red Cell Distribution Width 12.3 % Platelet Count 227 TH/MM3 Mean Platelet Volume 9.6 FL Neutrophils (%) (Auto) 75.4 % Lymphocytes (%) (Auto) 13.2 % Monocytes (%) (Auto) 9.2 % Eosinophils (%) (Auto) 1.1 % Basophils (%) (Auto) 1.1 % Neutrophils # (Auto) 6.2 TH/MM3 Lymphocytes # (Auto) 1.1 TH/MM3 Monocytes # (Auto) 0.8 TH/MM3 Eosinophils # (Auto) 0.1 TH/MM3 Basophils # (Auto) 0.1 TH/MM3 CBC Comment DIFF FINAL Differential Comment Prothrombin Time 10.7 SEC Prothromb Time International Ratio 1.1 RATIO Activated Partial Thromboplast Time 26.0 SEC Blood Urea Nitrogen 18 MG/DL Creatinine 0.78 MG/DL Random Glucose 101 MG/DL Total Protein 7.7 GM/DL Albumin 3.5 GM/DL Calcium Level 8.8 MG/DL Alkaline Phosphatase 104 U/L Aspartate Amino Transf (AST/SGOT) 17 U/L Alanine Aminotransferase (ALT/SGPT) 15 U/L Total Bilirubin 0.3 MG/DL Sodium Level 135 MEQ/L Potassium Level 4.8 MEQ/L Chloride Level 103 MEQ/L Carbon Dioxide Level 25.8 MEQ/L Anion Gap 6 MEQ/L Estimat Glomerular Filtration Rate 71 ML/MIN [facility] Medical Decision Making Medical Screen Exam Complete: Yes Emergency Medical Condition: Yes Differential Diagnosis Orr's palsy, CVA, schwannoma Narrative Course Vital signs reviewed. CBC is unremarkable. CMP is unremarkable. MRI brain: CONCLUSION: 1. No acute findings in the brain. 2. Right maxillary, right frontal, and bilateral ethmoid sinus disease. Patient was made aware of all findings. She is resting comfortably. She is aware of chronic sinusitis. 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 For this she will be started on prednisone. I contacted the patient's primary care physician Dr. Johns who was made aware of all findings and will be happy to follow up with the patient has an outpatient this week. Patient is happy with this plan. She reports that she has eyedrops that she has been applying to her left I had home. I also advised that she placed a piece of gauze and tape to keep her left eye shut her in the night. Diagnosis Primary Impression: Orr's palsy Referrals: Debbie Johns MD 2 days Additional Instructions: Follow-up with your primary care physician this week. Return to the emergency room if worsening symptoms or any other concerns. Scripts Prednisone (Prednisone) 50 Mg Tab 50 MG PO DAILY for 5 Days, #5 TAB 0 Refills Prov: Javier Resendiz MD 11/27/17 Disposition: 01 DISCHARGE HOME Condition: Stable Javier Resendiz MD Nov 27, 2017 12:26
[2017-11-27 12:29] LABS: AUTOMATED NEUTROPHIL # 6.2 TH/MM3 (1.8-7.7); BASOPHIL # 0.1 TH/MM3 (0-0.2); BASOPHIL % 1.1 % (0.0-2.0); EOSINOPHIL # 0.1 TH/MM3 (0-0.4); EOSINOPHIL % 1.1 % (0.0-4.0); HEMATOCRIT 37.4 % (35.0-46.0); HEMOGLOBIN 12.8 GM/DL (11.6-15.3); LYMPH % 13.2 % (9.0-44.0); LYMPHOCYTE # 1.1 TH/MM3 (1.0-4.8); MEAN CELL VOLUME 91.1 FL (80.0-100.0); MEAN CORPUSCULAR HEMOGLOBIN 31.1 PG (27.0-34.0); MEAN CORPUSCULAR HGB CONC 34.1 % (32.0-36.0); MEAN PLATELET VOLUME 9.6 FL (7.0-11.0); MONO % 9.2 % (0.0-8.0); MONOCYTE # 0.8 TH/MM3 (0-0.9); NEUT % 75.4 % (16.0-70.0); PLATELET COUNT 227 TH/MM3 (150-450); RED CELL DISTRIBUTION WIDTH 12.3 % (11.6-17.2); WHITE BLOOD COUNT 8.3 TH/MM3 (4.0-11.0)
[2017-11-27 12:40] LABS: CHLORIDE 103 MEQ/L (98-107); SODIUM (NA) 135 MEQ/L (136-145)
[2017-11-27 12:44] LABS: CALCIUM 8.8 MG/DL (8.5-10.1)
[2017-11-27 12:45] LABS: ALBUMIN 3.5 GM/DL (3.4-5.0); BICARBONATE 25.8 MEQ/L (21.0-32.0); BLOOD UREA NITROGEN 18 MG/DL (7-18); GLUCOSE,RANDOM 101 MG/DL (74-106); INTERNATIONAL NORMALIZED RATIO 1.1 RATIO; PROTHROMBIN TIME - PATIENT 10.7 SEC (9.8-11.6)
[2017-11-27 12:48] LABS: ALT (GPT) 15 U/L (10-53); AST (GOT) 17 U/L (15-37); CREATININE 0.78 MG/DL (0.50-1.00); GLOMERULAR FILTRATION RATE 71 ML/MIN (>89)
[2017-11-27 12:49] LABS: TOTAL BILIRUBIN ADULT 0.3 MG/DL (0.2-1.0); TOTAL PROTEIN 7.7 GM/DL (6.4-8.2)
[2017-11-27 12:51] LABS: ALKALINE PHOSPHATASE 104 U/L (45-117)
[2017-11-27 13:55] VITALS: BP 183/84; PULSE 68; RESP 16; O2SAT 96
--- NOTE | 2017-11-27 14:22 | RADRPT ---
EXAM DATE/TIME: 11/27/2017 13:25 [facility] COMPARISON: CT BRAIN W/O CONTRAST, December 01, 2016, 12:29. INDICATIONS : CVA. MEDICAL HISTORY : Hypertension. Hypercholesterolemia. Hypothyroidism. SURGICAL HISTORY : Tonsillectomy. ENCOUNTER: Initial ACUITY: 3 day PAIN SCORE: 1/10 LOCATION: Bilateral facial droop. TECHNIQUE: Multiplanar, multisequence MRI of the brain was performed without contrast. FINDINGS: CEREBRUM: The ventricles are normal for age. No evidence of midline shift, mass lesion, hemorrhage or acute in farction. No extraaxial fluid collections are seen. The pituitary gland and suprasellar cistern are normal in configuration. WHITE MATTER: No significant signal abnormalities are seen in the white matter. POSTERIOR FOSSA: The cerebellum and brainstem are intact. The 4th ventricle is midline. The cerebellopontine angle is unremarkable. The cerebellar tonsils are normal in position. DIFFUSION IMAGING: No focal areas of restricted diffusion are seen. No evidence of acute infarction. EXTRACRANIAL: Complete opacification of the right maxillary sinus. Multiple opacified anterior ethmoid air cells b ilaterally and T2 prolongation within the right frontal sinus. CONCLUSION: 1. No acute findings in the brain. 2. Right maxillary, right frontal, and bilateral ethmoid sinus disease. Philip Sr MD on November 27, 2017 at 14:18 Board Certified Radiologist. This report was verified electronically.
[2017-11-27] MEDS ORDERED: PRED50 PO (14:44)
[2017-11-27] MEDS ORDERED: predniSONE 50 MG TAB PO ONE (14:45)
== END 2017-11-27 14:55 | disposition home or self-care (01) ==
LOC: PHED 09:50
DX: G51.0 Bell's palsy (principal); I10 Essential (primary) hypertension; E78.00 Pure hypercholesterolemia, unspecified; E03.9 Hypothyroidism, unspecified; F41.9 Anxiety disorder, unspecified; F32.9 Major depressive disorder, single episode, unspecified; J32.9 Chronic sinusitis, unspecified
CPT/HCPCS: 70551; 80053; 85025; 85610; 85730; 99284; J7512

== ENCOUNTER → 2017-12-07 | Outpatient (CLI) | payer MEDICARE ==
[~2017-12-07] MED LIST changes: -BACT400T PO; +MELA5 PO; +PRED50 PO; +SODI1TAB PO
[2017-12-07 10:05] LABS: ALBUMIN 3.1 GM/DL (3.4-5.0); AST (GOT) 12 U/L (15-37); BICARBONATE 26.8 MEQ/L (21.0-32.0); BLOOD UREA NITROGEN 20 MG/DL (7-18); CALCIUM 9.1 MG/DL (8.5-10.1); CHLORIDE 101 MEQ/L (98-107); CREATININE 0.89 MG/DL (0.50-1.00); GLOMERULAR FILTRATION RATE 61 ML/MIN (>89); GLUCOSE,FASTING 95 MG/DL (74-99); SODIUM (NA) 135 MEQ/L (136-145)
[2017-12-07 10:06] LABS: CHOLESTEROL 164 MG/DL (120-200)
[2017-12-07 10:18] LABS: ALKALINE PHOSPHATASE 89 U/L (45-117); ALT (GPT) 16 U/L (10-53); CHOLESTEROL/ HDL RATIO 3.13 RATIO; HDL CHOLESTEROL 52.3 MG/DL (40.0-60.0); LDL CHOLESTEROL 90 MG/DL (0-99); TOTAL BILIRUBIN ADULT 0.5 MG/DL (0.2-1.0); TOTAL PROTEIN 6.8 GM/DL (6.4-8.2); TRIGLYCERIDES 110 MG/DL (42-150)
== END ==
LOC: PLAB 06:44
PROVIDERS: ATTEND Family Medicine
DX: E87.1 Hypo-osmolality and hyponatremia (principal); E22.2 Syndrome of inappropriate secretion of antidiuretic hormone; E78.2 Mixed hyperlipidemia; E55.9 Vitamin D deficiency, unspecified; E03.8 Other specified hypothyroidism
CPT/HCPCS: 36415; 80053; 80061; 82306; 84443